=== PATIENT | female | born 1995 | race Caucasian/White ===

== ENCOUNTER 2017-03-01 19:37 | Emergency (ER) | payer OTHER ==
[2017-03-01 19:51] VITALS: BP 105/63; PULSE 80; TEMP 98; BMI 21.4
[2017-03-01 20:05] LABS: URINE APPEARANCE CLEAR; URINE BILIRUBIN NEGATIVE (NEGATIVE); URINE BLOOD NEGATIVE (NEGATIVE); URINE COLOR LTYELLOW; URINE GLUCOSE (UA) NEGATIVE (NEGATIVE); URINE KETONE NEGATIVE (NEGATIVE); URINE LEUK ESTERASE NEGATIVE (NEGATIVE); URINE NITRITE NEGATIVE (NEGATIVE); URINE PROTEIN NEGATIVE (NEGATIVE); URINE UROBILINOGEN 2.0 E.U/dl E.U./dl (0.2-1.0)
[2017-03-01] MEDS ORDERED: ACETAMINOPHEN 325 MG TABLET (FP) PO ONE (20:37)
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
[2017-03-01] MEDS ORDERED: ACETAMINOPHEN 325 MG TABLET (FP) ONE (21:05)
[2017-03-01 22:11] LABS: BASOPHIL 0.5 % (0-2.0); EOSINOPHIL 1.6 % (0-4.5); MCHC 33.2 g/dl (32.0-36.0)
[2017-03-01 22:16] LABS: MCH 28.7 pg (25.7-33.7); MEAN CELL VOLUME 86.6 fl (80-96); PLATELET COUNT 292 K/MM3 (134-434); RDW 13.4 % (11.6-15.6); WHITE BLOOD COUNT 6.8 K/mm3 (4.0-10.0)
[2017-03-01 22:36] LABS: ALBUMIN 3.6 g/dl (3.4-5.0); ALK PHOS 82 U/L (45-117); ANION GAP 11 (8-16); BILIRUBIN,TOTAL 0.3 mg/dL (0.2-1.0); CALCIUM 8.4 mg/dL (8.5-10.1); CO2 25 mmol/L (21-32); CREATININE 0.6 mg/dL (0.55-1.02); GLUCOSE,RANDOM 88 mg/dL (74-106); SGOT/AST 17 U/L (15-37); SGPT/ALT 24 U/L (12-78); TOT PROT 6.9 g/dl (6.4-8.2)
== END 2017-03-01 23:27 | disposition home or self-care (01) ==
LOC: JER 19:37
DX: R07.81 Pleurodynia (principal)
CPT/HCPCS: 36415; 71020-TC; 71101-TC; 80053; 81003; 84703; 85025; 85651; 99282-25

== ENCOUNTER 2019-06-25 13:21 | Emergency (ER) | payer OTHER ==
[2019-06-25 13:40] VITALS: BMI 20.1
[2019-06-25] MEDS ORDERED: CYCLOBENZAPRINE HCL 10 MG TABLET (FP) PO ONE (14:08)
[2019-06-25 14:48] LABS: BASO % 0.8 % (0-2.0); EOS % 1.3 % (0-4.5); HEMATOCRIT 36.8 % (32.4-45.2); HEMOGLOBIN 12.5 GM/dL (10.7-15.3); LYMPH % 27.9 % (8-40); MCH 29.7 pg (25.7-33.7); MCHC 34.1 g/dl (32.0-36.0); MEAN CELL VOLUME 87.2 fl (80-96); MEAN PLT VOLUME 6.9 fl (7.5-11.1); MONO % 9.4 % (3.8-10.2); NEUT % 60.6 % (42.8-82.8); PLATELET COUNT 316 K/MM3 (134-434); RBC 4.22 M/mm3 (3.60-5.2); RDW 13.6 % (11.6-15.6); WHITE BLOOD COUNT 5.6 K/mm3 (4.0-10.0)
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
[2019-06-25 15:25] LABS: URINE APPEARANCE Clear; URINE BILIRUBIN Negative (NEGATIVE); URINE COLOR Yellow; URINE GLUCOSE (UA) Negative (NEGATIVE); URINE KETONE Negative (NEGATIVE); URINE LEUK ESTERASE Negative (NEGATIVE); URINE NITRITE Negative (NEGATIVE); URINE PROTEIN Negative (NEGATIVE); URINE UROBILINOGEN 0.2 mg/dL (0.2-1.0)
[2019-06-25 15:29] LABS: BILIRUBIN,TOTAL 0.3 mg/dL (0.2-1); BLOOD UREA NITROGEN 11.6 mg/dL (7-18); CALCIUM 9.3 mg/dL (8.5-10.1); CREATININE 0.6 mg/dL (0.55-1.3); POTASSIUM 4.3 mmol/L (3.5-5.1); TOT PROT 7.7 g/dl (6.4-8.2)
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
[2019-06-25 19:49] VITALS: BP 110/68; PULSE 86; TEMP 98.5
== END 2019-06-25 19:49 | disposition home or self-care (01) ==
LOC: JER 13:21
DX: K29.70 Gastritis, unspecified, without bleeding (principal)
CPT/HCPCS: 36415; 71260-TC; 74177-TC; 80053; 81003; 84703; 85025; 99282-25

== ENCOUNTER 2020-01-13 16:19 | Emergency (ER) | payer OTHER ==
[2020-01-13 16:30] VITALS: BP 117/48; PULSE 70; TEMP 98.3; BMI 23.4
--- NOTE | 2020-01-13 16:52 | PDOC ---
History of Present Illness - General Chief Complaint: Cold Symptoms Stated Complaint: FEVER Time Seen by Provider: 01/13/20 16:30 History Source: Patient Exam Limitations: Clinical Condition - History of Present Illness Initial Comments: 01/13/20 16:46 Patient with no significant past medical history present with complaint of 3-day history of nasal congestion, runny nose, sneezing, intermittent cough. Patient reports tactile fevers but never take temperature. Patient report taking TheraFlu [id number] for symptoms. Denies sick contacts or recent travel. Denies any other symptoms Is this a multiple visit Asthma Patient?: No Timing/Duration: other (3 days) Past History - Past Medical History Allergies/Adverse Reactions: Allergies Allergy/AdvReac Type Severity Reaction Status Date / Time No Known Allergies Allergy Verified 01/13/20 16:26 Home Medications: Ambulatory Orders Benzonatate [Tessalon Pearls -] 100 mg PO Q8H PRN #12 capsule 01/13/20 Ipratropium [place] 2 spray NS BID PRN 5 Days #1 spray 01/13/20 Montelukast Na [Singulair -] 10 mg PO HS #7 tablet 01/13/20 COPD: No - Psycho Social/Smoking Cessation Hx Smoking History: Never smoked Have you smoked in the past 12 months: No Hx Alcohol Use: No Drug/Substance Use Hx: No Review of Systems - Review of Systems Able to Perform ROS?: Yes Is the patient limited Hungarian proficient: No Constitutional: Yes: Fever (tactile). No: Chills, Malaise HEENTM: Yes: Symptoms Reported, See HPI, Nose Congestion. No: Eye Pain, Blurred Vision, Tearing, Recent change in vision, Double Vision, Cataracts, Ear Pain, Ocular Prothesis, Ear Discharge, Nose Pain, Tinnitus, Nose Bleeding, Hearing Loss, Throat Pain, Throat Swelling, Mouth Pain, Dental Problems, Difficulty Swallowing, Mouth Swelling, Other Respiratory: Yes: Symptoms reported, See HPI, Cough. No: Orthopnea, Shortness of Breath, SOB with Exertion, SOB at Rest, Stridor, Wheezing, Productive cough, Hemoptysis, Other Cardiac (ROS): No: Symptoms Reported, See HPI, Chest Pain, Edema, Irregular Heart Rate, Lightheadedness, Palpitations, Syncope, Chest Tightness, Other ABD/GI: No: Symptoms Reported, Nausea, Vomiting Musculoskeletal: No: Symptoms Reported Integumentary: No: Symptoms Reported, Rash All Other Systems: Reviewed and Negative *Physical Exam - Vital Signs Last Vital Signs Temp Pulse Resp BP Pulse Ox 98.3 F 70 18 117/48 L 100 01/13/20 16:26 01/13/20 16:26 01/13/20 16:26 01/13/20 16:26 01/13/20 16:26 - Physical Exam 01/13/20 16:50 GENERAL: Well developed, well nourished. Awake and alert. No acute distress. HEENT: Bilateral nasal congestion. Normocephalic, atraumatic. PERRLA, EOMI. No conjunctival pallor. Sclera are non-icteric. Moist mucous membranes. Oropharynx is clear. NECK: Supple. Full ROM. CARDIOVASCULAR: Regular rate and rhythm. No murmurs, rubs, or gallops. PULMONARY: No evidence of respiratory distress. Lungs clear to auscultation bilaterally. No wheezing, rales or rhonchi. ABDOMINAL: Soft. Non-tender. Non-distended. No rebound or guarding. No organomegaly. Normoactive bowel sounds. MUSCULOSKELETAL Normal range of motion at all joints. SKIN: Warm and dry. Normal capillary refill. No rashes. No cyanosis. NEUROLOGICAL: Alert, awake, appropriate. Gait is normal without ataxia. PSYCHIATRIC: Cooperative. Good eye contact. Appropriate mood General Appearance: Yes: Nourished, Appropriately Dressed. No: Apparent Distress Medical Decision Making - Medical Decision Making 01/13/20 16:48 Patient with no significant past medical history present with complaint of 3-day history of nasal congestion, runny nose, sneezing, intermittent cough. Patient reports tactile fevers but never take temperature. Patient report taking TheraFlu [id number] for symptoms. Denies sick contacts or recent travel. Denies any other symptoms Exam significant for bilateral nasal congestion otherwise unremarkable exam. Lungs clear to auscultation bilateral. Normal cardio exam. Patient symptoms likely viral URI with rhinitis. Patient stable for discharge on Tessalon Perles. For cough and Atrovent nasal spray and Singulair for nasal congestion advised to increase fluid intake with PCP follow-up Discharge - Discharge Information Problems reviewed: Yes Clinical Impression/Diagnosis: URI, acute Rhinitis Qualifiers: Rhinitis type: allergic Allergic rhinitis trigger: unspecified Allergic rhinitis seasonality: seasonal Qualified Code(s): J30.2 - Other seasonal allergic rhinitis Condition: Stable Disposition: HOME - Admission No - Additional Discharge Information Prescriptions: Ipratropium [place] 2 spray NS BID PRN 5 Days #1 spray PRN Reason: nasal congestion Montelukast Na [Singulair -] 10 mg PO HS #7 tablet Benzonatate [Tessalon Pearls -] 100 mg PO Q8H PRN #12 capsule PRN Reason: Cough - Follow up/Referral Referrals: Jonelle Mcfarland NP [Primary Care Provider] - - Patient Discharge Instructions Patient Printed Discharge Instructions: DI for Viral Upper Respiratory Infection -- Adult Additional Instructions: Symptoms likely caused by viral upper respiratory congestion. Take prescribed medication as prescribed for cough and congestion. Increase fluid intake. Follow-up with primary care as needed - Post Discharge Activity
== END 2020-01-13 16:52 | disposition home or self-care (01) ==
LOC: JERFT 16:19
DX: J06.9 Acute upper respiratory infection, unspecified (principal); J30.2 Other seasonal allergic rhinitis
CPT/HCPCS: 99282-25

== ENCOUNTER 2020-10-13 16:57 | Emergency (ER) | payer OTHER ==
[2020-10-13 17:03] VITALS: BP 101/65; PULSE 95; TEMP 98.8
[2020-10-13] MEDS ORDERED: IBUPROFEN 600 MG TABLET (FP) PO ONE ×2 (18:03→18:16)
== END 2020-10-13 18:30 | disposition home or self-care (01) ==
LOC: JERFT 16:57
DX: K08.89 Other specified disorders of teeth and supporting structures (principal)
CPT/HCPCS: 99283-25

== ENCOUNTER 2021-05-23 02:15 | Inpatient (IN) | payer OTHER ==
[2021-05-23] MEDS ORDERED: DEXTROSE 5%-LACTATED RINGERS 1,000 ML IV ONE (04:00)
[2021-05-23 04:39] LABS: BASO % 0.6 % (0-2.0); EOS % 1.3 % (0-4.5); HEMATOCRIT 39.3 % (32.4-45.2); HEMOGLOBIN 13.3 GM/dL (10.7-15.3); LYMPH % 23.7 % (8-40); MCH 30.2 pg (25.7-33.7); MCHC 33.7 g/dl (32.0-36.0); MEAN CELL VOLUME 89.5 fl (80-96); MEAN PLT VOLUME 8.2 fl (7.5-11.1); MONO % 9.2 % (3.8-10.2); NEUT % 65.2 % (42.8-82.8); PLATELET COUNT 202 10^3/uL (134-434); RBC 4.39 M/mm3 (3.60-5.2); WHITE BLOOD COUNT 8.4 K/mm3 (4.0-10.0)
[2021-05-23 04:52] LABS: INR 0.87 (0.83-1.09); PROTHROMBIN TIME (PATIENT) 10.7 SEC (9.7-13.0)
[2021-05-23 04:55] LABS: ACTIVATED PTT 30.2 SECONDS (25.2-36.5)
[2021-05-23 05:02] LABS: CALCIUM 8.2 mg/dL (8.5-10.1)
[2021-05-23 05:03] VITALS: BMI 23.0
[2021-05-23 05:03] LABS: BLOOD UREA NITROGEN 3.7 mg/dL (7-18)
[2021-05-23 05:06] LABS: CREATININE 0.5 mg/dL (0.55-1.3)
[2021-05-23] MEDS ORDERED: PROMETHAZINE HCL 25 MG/1 ML VIAL IVPB ONE (05:30)
[2021-05-23] MEDS ORDERED: BUTORPHANOL TARTRATE 1 MG/ML VIAL IVPB ONE (05:30)
[2021-05-23] MEDS ORDERED: BUTORPHANOL TARTRATE 2 MG/ML VIAL ONE (05:44)
[2021-05-23] MEDS ORDERED: PROMETHAZINE HCL 25 MG/1 ML VIAL ONE (05:44)
[2021-05-23] MEDS: ELECTROLYTE-148 SOLN 1,000 ML IV SCH ×2 (07:50→10:45)
[2021-05-23] MEDS ORDERED: FENTANYL/BUPIVACAINE/NS/PF - PCEA - 50 ML DISP.SYRIN EP ONE ×2 (07:51→08:03)
[2021-05-23] MEDS ORDERED: PCA PUMP NR ONE ×3 (08:07→20:03)
[2021-05-23 08:22] LABS: COCAINE, UR NEGATIVE (NEGATIVE); URINE AMPHETAMINES NEGATIVE (NEGATIVE); URINE BARBITURATES NEGATIVE (NEGATIVE); URINE BENZODIAZEPINES NEGATIVE (NEGATIVE)
[2021-05-23 08:23] LABS: METHADONE, UR NEGATIVE (NEGATIVE); OPIATES, URI NEGATIVE (NEGATIVE); PHENCYCLIDINE,URINE NEGATIVE (NEGATIVE)
[2021-05-23] MEDS: FENTANYL/BUPIVACAINE/NS/PF - PCEA - 50 ML DISP.SYRIN EP SCH (09:55)
[2021-05-23] MEDS ORDERED: NALOXONE HCL 0.4 MG/ML VIAL IVPUSH PRN (10:50)
[2021-05-23] MEDS ORDERED: OXYTOCIN 20 UNITS in 0.9% NS 20 UNIT/1,000 ML INFUS.BAG IV ONE ×2 (15:08→17:42)
[2021-05-23] MEDS ORDERED: BENZOCAINE 28 GM HEMORRHOIDAL OINTMENT TP PRN (16:19)
[2021-05-23] MEDS ORDERED: BENZOCAINE 20% 57 GM BOTTLE TP PRN (16:19)
[2021-05-23] MEDS ORDERED: BISACODYL 10 MG SUPP.RECT RC PRN (16:19)
[2021-05-23] MEDS ORDERED: METHYLERGONOVINE MALEATE 0.2 MG/1 ML AMP IM PRN (16:19)
[2021-05-23] MEDS ORDERED: WITCH HAZEL 50% (TUCKS) 40 PAD/JAR PAD TP PRN (16:19)
[2021-05-23] MEDS ORDERED: OXYTOCIN 20 UNITS in 0.9% NS 20 UNIT/1,000 ML INFUS.BAG IV SCH (16:30)
[2021-05-23 16:48] LABS: CORD BASE EXCESS -7.1 mmol/L (0-2); CORD HCO3 19.8 mmHg (20-29); CORD PCO2 44.9 mmHg (30-78); CORD pH 7.263 (7.14-7.44)
[2021-05-23 16:51] LABS: CORD BASE EXCESS -5.9 mmol/L (0-2); CORD HCO3 21.9 mmHg (20-29); CORD PCO2 51.5 mmHg (30-78); CORD pH 7.246 (7.14-7.44)
[2021-05-23] MEDS: FERROUS SO4 325 MG TABLET (FP) PO SCH (17:50)
[2021-05-23] MEDS ORDERED: PRENATAL VITAMINS W/ FOLIC ACID TABLET (FP) PO ONE (17:53)
[2021-05-23] MEDS ORDERED: FERROUS SO4 325 MG TABLET (FP) ONE (17:56)
[2021-05-24] MEDS: FERROUS SO4 325 MG TABLET (FP) PO SCH ×2 (09:00→17:58)
[2021-05-24 10:21] LABS: BASO % 0.7 % (0-2.0); EOS % 0.6 % (0-4.5); HEMATOCRIT 38.5 % (32.4-45.2); HEMOGLOBIN 12.6 GM/dL (10.7-15.3); LYMPH % 19.2 % (8-40); MCH 29.6 pg (25.7-33.7); MCHC 32.7 g/dl (32.0-36.0); MEAN CELL VOLUME 90.6 fl (80-96); MONO % 6.9 % (3.8-10.2); NEUT % 72.6 % (42.8-82.8); PLATELET COUNT 185 10^3/uL (134-434); RBC 4.25 M/mm3 (3.60-5.2); RDW 18.1 % (11.6-15.6); WHITE BLOOD COUNT 11.2 K/mm3 (4.0-10.0)
[2021-05-24] MEDS: PRENATAL VITAMINS W/ FOLIC ACID TABLET (FP) PO SCH (10:59)
[2021-05-24] MEDS: IBUPROFEN 600 MG TABLET (FP) PO PRN ×2 (18:02→23:41)
[2021-05-24] MEDS: ACETAMINOPHEN 325 MG TABLET (FP) PO PRN ×2 (18:02→23:41)
[2021-05-24] MEDS ORDERED: SENNOSIDES/DOCUSATE COMBO (SENNA PLUS) TABLET (UD) PO PRN (22:00)
[2021-05-24] MEDS: ELECTROLYTE-148 SOLN 1,000 ML IV SCH (23:14)
[2021-05-24] MEDS: FENTANYL/BUPIVACAINE/NS/PF - PCEA - 50 ML DISP.SYRIN EP SCH (23:15)
[2021-05-25] MEDS: IBUPROFEN 600 MG TABLET (FP) PO PRN ×2 (08:12→13:51)
[2021-05-25] MEDS: FERROUS SO4 325 MG TABLET (FP) PO SCH (08:13)
[2021-05-25] MEDS: ACETAMINOPHEN 325 MG TABLET (FP) PO PRN ×2 (08:13→13:51)
[2021-05-25 09:17] VITALS: BP 115/60; PULSE 48; TEMP 98.6
[2021-05-25] MEDS: PRENATAL VITAMINS W/ FOLIC ACID TABLET (FP) PO SCH (09:38)
== END 2021-05-25 14:20 | disposition home or self-care (01) | DRG 560 ==
LOC: JDEL 02:15 → JLDR 03:35 → J3W 20:00
PROVIDERS: ADMIT Obstetrics & Gynecology; ATTEND Obstetrics & Gynecology
PROC: 10E0XZZ Delivery of Products of Conception, External Approach (ICD-10-PCS; principal; 2021-05-23)
PROC: 0HQ9XZZ Repair Perineum Skin, External Approach (ICD-10-PCS; 2021-05-23)
DX: O70.0 First degree perineal laceration during delivery (principal); Z3A.39 39 weeks gestation of pregnancy; Z37.0 Single live birth
CPT/HCPCS: 36415; 36600; 59409; 80048; 80307; 82803; 85025; 85610; 85730; 86780; 86850; 86900; 86901; C9803; U0003; U0005

== ENCOUNTER 2021-06-25 05:17 | Emergency (ER) | payer OTHER ==
[2021-06-25 06:14] VITALS: TEMP 98.1; BMI 21.5
[2021-06-25] MEDS ORDERED: ACETAMINOPHEN 1000 MG/100 ML VIAL (NON FORMULARY) IVPB ONE (07:25)
[2021-06-25] MEDS ORDERED: ONDANSETRON 4 MG/2 ML VIAL IVPUSH ONE (07:25)
[2021-06-25 08:30] LABS: BASO % 0.2 % (0-2.0); EOS % 0.9 % (0-4.5); HEMATOCRIT 42.5 % (32.4-45.2); HEMOGLOBIN 14.3 GM/dL (10.7-15.3); LYMPH % 9.5 % (8-40); MCH 30.1 pg (25.7-33.7); MCHC 33.7 g/dl (32.0-36.0); MEAN CELL VOLUME 89.2 fl (80-96); MEAN PLT VOLUME 7.1 fl (7.5-11.1); MONO % 8.3 % (3.8-10.2); NEUT % 81.1 % (42.8-82.8); PLATELET COUNT 318 10^3/uL (134-434); RBC 4.76 M/mm3 (3.60-5.2); RDW 14.7 % (11.6-15.6); WHITE BLOOD COUNT 14.8 K/mm3 (4.0-10.0)
[2021-06-25 08:35] LABS: PH,URINE 5.5 (5.0-8.0); URINE APPEARANCE CLEAR; URINE BILIRUBIN 1+ (NEGATIVE); URINE COLOR DK YELLOW; URINE GLUCOSE (UA) NEGATIVE (NEGATIVE); URINE KETONE TRACE (NEGATIVE); URINE LEUK ESTERASE NEGATIVE (NEGATIVE); URINE NITRITE NEGATIVE (NEGATIVE); URINE PROTEIN NEGATIVE (NEGATIVE)
[2021-06-25 08:48] LABS: BLOOD UREA NITROGEN 17.4 mg/dL (7-18); CALCIUM 9.2 mg/dL (8.5-10.1)
[2021-06-25 08:52] LABS: CREATININE 0.7 mg/dL (0.55-1.3)
[2021-06-25 08:53] LABS: BILIRUBIN,TOTAL 0.3 mg/dL (0.2-1); TOT PROT 8.1 g/dl (6.4-8.2)
[2021-06-25 13:54] VITALS: BP 124/61; PULSE 88
== END 2021-06-25 13:54 | disposition home or self-care (01) ==
LOC: JER 05:17
PROC: 3E0333Z Introduction of Anti-inflammatory into Peripheral Vein, Percutaneous Approach (ICD-10-PCS; principal; 2021-06-25)
PROC: 3E033GC Introduction of Other Therapeutic Substance into Peripheral Vein, Percutaneous Approach (ICD-10-PCS; 2021-06-25)
DX: K59.00 Constipation, unspecified (principal)
CPT/HCPCS: 36415; 74177-TC; 76705-TC; 76830-TC; 80053; 81003; 83690; 84703; 85025; 87086; 99285-25; J0131; Q9967

== ENCOUNTER 2023-03-05 04:35 | Inpatient (IN) | payer OTHER ==
[2023-03-05 05:51] LABS: CALCIUM 8.3 mg/dL (8.5-10.1)
[2023-03-05 05:52] LABS: BLOOD UREA NITROGEN 9.4 mg/dL (7-18)
[2023-03-05 05:54] LABS: BASO % 0.3 % (0-2.0); EOS % 0.5 % (0-4.5); HEMATOCRIT 32.9 % (32.4-45.2); HEMOGLOBIN 11.6 GM/dL (10.7-15.3); LYMPH % 16.9 % (8-40); MCH 28.8 pg (25.7-33.7); MCHC 35.2 g/dl (32.0-36.0); MEAN CELL VOLUME 81.8 fl (80-96); MEAN PLT VOLUME 8.4 fl (7.5-11.1); MONO % 6.9 % (3.8-10.2); NEUT % 75.4 % (42.8-82.8); PLATELET COUNT 222 10^3/uL (134-434); RBC 4.02 M/mm3 (3.60-5.2); WHITE BLOOD COUNT 10.2 K/mm3 (4.0-10.0)
[2023-03-05 05:55] LABS: CREATININE 0.5 mg/dL (0.55-1.3)
[2023-03-05] MEDS ORDERED: FENTANYL/BUPIVACAINE/NS/PF - PCEA - 50 ML DISP.SYRIN EP ONE (06:04)
[2023-03-05] MEDS ORDERED: NALOXONE HCL 0.4 MG/ML VIAL IVPUSH PRN (06:13)
[2023-03-05] MEDS ORDERED: BUPIVACAINE HCL/PF 0.25% (2.5MG/ML) 10 ML VIAL ONE (06:14)
[2023-03-05] MEDS ORDERED: FENTANYL/BUPIVACAINE/NS/PF - PCEA - 50 ML DISP.SYRIN EP SCH (06:15)
[2023-03-05 06:16] VITALS: BMI 24.1
[2023-03-05 06:29] LABS: INR 0.93 (0.83-1.09); PROTHROMBIN TIME (PATIENT) 10.8 SEC (9.7-13.0)
[2023-03-05] MEDS ORDERED: OXYTOCIN 30 UNITS in 0.9% NS 30 UNIT/500 ML INFUS.BAG IVPB SCH (06:30)
[2023-03-05] MEDS ORDERED: ELECTROLYTE-148 SOLN 1,000 ML IV SCH (06:30)
[2023-03-05 06:32] LABS: ACTIVATED PTT 29.4 SECONDS (25.2-36.5)
[2023-03-05] MEDS ORDERED: AMPICILLIN - 2 GM in SODIUM CHLORIDE 100 ML IVPB ONE (07:00)
[2023-03-05] MEDS ORDERED: OXYTOCIN 30 UNITS in 0.9% NS 30 UNIT/500 ML INFUS.BAG IVPB ONE (07:02)
[2023-03-05] MEDS ORDERED: AMPICILLIN SODIUM 2 GM VIAL ONE (07:02)
[2023-03-05] MEDS ORDERED: LIDOCAINE HCL 1% PRESERVATIVE FREE - 30ML VIAL ONE (08:11)
[2023-03-05] MEDS ORDERED: OXYTOCIN 20 UNITS in 0.9% NS 20 UNIT/1,000 ML INFUS.BAG IV ONE (08:11)
[2023-03-05] MEDS ORDERED: WITCH HAZEL 50% (TUCKS) 40 PAD/JAR PAD TP PRN (08:29)
[2023-03-05] MEDS ORDERED: oxyCODONE HCL 5 MG TABLET PO PRN (08:29)
[2023-03-05] MEDS ORDERED: METHYLERGONOVINE MALEATE 0.2 MG/1 ML AMP IM PRN (08:29)
[2023-03-05] MEDS ORDERED: BENZOCAINE 28 GM HEMORRHOIDAL OINTMENT TP PRN (08:29)
[2023-03-05] MEDS ORDERED: BISACODYL 10 MG SUPP.RECT RC PRN (08:29)
[2023-03-05] MEDS ORDERED: BENZOCAINE 20% 57 GM BOTTLE TP PRN (08:29)
[2023-03-05] MEDS ORDERED: ACETAMINOPHEN 325 MG TABLET (FP) PO PRN (08:29)
[2023-03-05] MEDS ORDERED: OXYTOCIN 20 UNITS in 0.9% NS 20 UNIT/1,000 ML INFUS.BAG IV SCH (08:30)
[2023-03-05 09:16] LABS: CORD BASE EXCESS -2.3 mmol/L (0-2); CORD PCO2 41.8 mmHg (30-78); CORD pH 7.359 (7.14-7.44)
[2023-03-05] MEDS: IBUPROFEN 600 MG TABLET (FP) PO PRN ×2 (16:44→23:56)
[2023-03-06 08:45] LABS: BASO % 0.7 % (0-2.0); EOS % 1.5 % (0-4.5); HEMATOCRIT 30.9 % (32.4-45.2); HEMOGLOBIN 10.7 GM/dL (10.7-15.3); LYMPH % 27.5 % (8-40); MCH 28.7 pg (25.7-33.7); MCHC 34.7 g/dl (32.0-36.0); MEAN CELL VOLUME 82.8 fl (80-96); MEAN PLT VOLUME 8.5 fl (7.5-11.1); MONO % 9.5 % (3.8-10.2); NEUT % 60.8 % (42.8-82.8); PLATELET COUNT 210 10^3/uL (134-434); RBC 3.73 M/mm3 (3.60-5.2); RDW 15.2 % (11.6-15.6); WHITE BLOOD COUNT 8.1 K/mm3 (4.0-10.0)
[2023-03-06] MEDS: IBUPROFEN 600 MG TABLET (FP) PO PRN (11:51)
[2023-03-06] MEDS ORDERED: SENNOSIDES/DOCUSATE COMBO (SENNA PLUS) TABLET (UD) PO PRN (22:00)
[2023-03-06 23:59] VITALS: TEMP 98.1
[2023-03-07] MEDS: IBUPROFEN 600 MG TABLET (FP) PO PRN ×3 (00:18→12:25)
[2023-03-07 10:31] VITALS: BP 101/68; PULSE 70; RESP 16
== END 2023-03-07 13:35 | disposition home or self-care (01) | DRG 560 ==
LOC: JLDR 04:35 → J3W 13:12
PROVIDERS: ADMIT Obstetrics & Gynecology; ATTEND Obstetrics & Gynecology
PROC: 10E0XZZ Delivery of Products of Conception, External Approach (ICD-10-PCS; principal; 2023-03-05)
DX: O80 Encounter for full-term uncomplicated delivery (principal); Z3A.40 40 weeks gestation of pregnancy; Z37.0 Single live birth
CPT/HCPCS: 36415; 36600; 80048; 82803; 85025; 85610; 85730; 86780; 86850; 86900; 86901; C9803-CS; U0003; U0005